=== PATIENT | male | born 1975 | race Caucasian/White ===

== ENCOUNTER 2018-12-25 18:26 | Emergency (ER) | payer OTHER, BC ==
[2018-12-25 18:50] VITALS: BP 151/107
--- NOTE | 2018-12-25 18:51 | ED Physician Documentation ---
History of Present Illness - Stated complaint Stated Complaint: MALE - Chief complaint Chief Complaint: General - Additonal information Additional information: Patient is a 43-year-old male presenting with less than 1 day of anal discomfo rt. Patient denies any known incident or trauma to the area. Patient did have fall from 10 feet several weeks ago while at work, which has been evaluated and addressed otherwise. Patient does not have complaints related to this issue. Patient is unsure if he has hemorrhoids or not. Patient reports pain with defecation and with wiping, although no blood present. Patient denies constipation and describes more loose stools. Patient denies fever, abdominal pain, nausea, vomiting, urinary changes, testicular or penile complaints. No particular improving or worsening factors to the symptoms noted. Review of Systems Constitutional: denies: Fever GI: reports: Diarrhea. denies: Abdominal Pain PD PAST MEDICAL HISTORY - Past Medical History Past Medical History: No - Past Surgical History Past Surgical History: No - Present Medications Home Medications: Ambulatory Orders Medication Instructions Recorded Confirmed Hydrocortisone/Pramoxine [Analpram 59 ml TP QID #1 lotion 12/25/18 Hc 2.5%-1% Lotion] - Allergies Allergies/Adverse Reactions: Allergies Allergy/AdvReac Type Severity Reaction Status Date / Time No Known Drug Allergies Allergy Verified 12/25/18 18:43 PD ED PE NORMAL - General General: Alert and oriented X 3, No acute distress, Well developed/nourished - HEENT HEENT: Atraumatic - Cardiac Cardiac: RRR, No murmur - Respiratory Respiratory: No respiratory distress, Clear bilaterally - Abdomen Abdomen: Normal bowel sounds, Soft, Non tender, Non distended - Male Male : [employer]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 Approximately dime sized slightly erythematous hemorrhoid with no evidence of clot present. No evidence of anal tears, fissures, or fistulas. No other signs of abscess present. No concerns for Jhon's.) - Derm Derm: Normal color, Warm and dry, No rash - Extremities Extremities: No deformity, No tenderness to palpate - Neuro Neuro: Alert and oriented X 3, No motor deficit, No sensory deficit - Psych Psych: Normal mood, Normal affect Results - Vitals Vitals: Vital Signs - 24 hr 12/25/18 18:43 Temperature 36.8 C Heart Rate 101 H Respiratory 16 Rate Blood Pressure 151/107 H O2 Saturation 97 Oxygen O2 Source Room air PD MEDICAL DECISION MAKING - ED course Complexity details: considered differential, d/w patient ED course: Most concerning for hemorrhoids given patient's description and physical exam findings. Do not find evidence of anal fissure, anal tear, fistula. Do not have concerns for rectal abscess or other intra-abdominal complications. Patient also denies symptoms or concerns that would raise suspicion for inguinal hernias, testicular or penile pathology. Discussed supportive cares, return precautions, appropriate follow-up. Patient voiced understanding and is comfortable with discharge plan. Departure - Departure Disposition: 01 Home, Self Care Clinical Impression: Acute hemorrhoid Condition: Good Instructions: ED Hemorrhoids Follow-Up: your,doctor [Other] - Within 3 Days Prescriptions: Hydrocortisone/Pramoxine [Analpram Hc 2.5%-1% Lotion] 59 ml TP QID #1 lotion Comments: Recommend finding pillows or a doughnut to help relieve pressure while sitting. Also recommend oatmeal or sits baths to help reduce inflammation. May use ibuprofen/Tylenol for pain and inflammation relief as well. Please use Analpram as prescribed for topical relief. May also try ajam-[id number]-[id number] hemorrhoid creams if needed. Follow-up with primary care physician in next 2-3 days and return to ED sooner if experience worsening symptoms or other concerns.
== END 2018-12-25 19:13 | disposition home or self-care (01) ==
LOC: ED 18:26
DX: K64.4 Residual hemorrhoidal skin tags (principal)
CPT/HCPCS: 99283

== ENCOUNTER 2019-03-07 08:00 | Outpatient (CLI) | payer BC, OTHER ==
[2019-03-07 14:38] LABS: BASOPHILS % (AUTO) 0.5 %; EOSINOPHILS # (AUTO) 0.2 10^3/uL (0.0-0.7); EOSINOPHILS % (AUTO) 4.1 %; HGB - HEMOGLOBIN 15.2 g/dL (14.0-18.0); LYMPHOCYTES # (AUTO) 1.8 10^3/uL (1.5-3.5); MEAN CORPUSCULAR HEMOGLOBIN 29.7 pg (27.0-31.0); MEAN CORPUSCULAR HGB CONC 33.5 g/dL (32.0-36.0); MEAN CORPUSCULAR VOLUME 88.6 fL (80.0-94.0); MEAN PLATELET VOLUME 9.9 fL (7.4-11.4); MONOCYTES # (AUTO) 0.6 10^3/uL (0.0-1.0); MONOCYTES % (AUTO) 12.1 %; NEUTROPHILS # (AUTO) 2.5 10^3/uL (1.5-6.6); NEUTROPHILS % (AUTO) 48.3 %; PLT - PLATELET COUNT 203 10^3/uL (130-450); RED BLOOD COUNT 5.12 10^6/uL (4.70-6.10); RED CELL DISTRIBUTION WIDTH 13.3 % (12.0-15.0); WHITE BLOOD COUNT 5.2 x10^3/uL (4.8-10.8)
[2019-03-07 15:13] LABS: ALBUMIN 4.5 g/dL (3.2-5.5); ALBUMIN/GLOBULIN RATIO 1.6 (1.0-2.2); ALKALINE PHOSPHATASE 49 IU/L (42-121); ALT ALANINE AMINOTRANSFERASE 33 IU/L (10-60); AST ASPARTATE AMINOTRANSFERASE 23 IU/L (10-42); BILIRUBIN,TOTAL 0.8 mg/dL (0.2-1.0); BUN - BLOOD UREA NITROGEN 15 mg/dL (6-20); CALCIUM 9.4 mg/dL (8.5-10.3); CARBON DIOXIDE - CO2 25 mmol/L (21-32); CHLORIDE 104 mmol/L (101-111); CHOLESTEROL 216 mg/dL; CREATININE 1.1 mg/dL (0.6-1.2); GFR - MDRD 72 (>89); GLUCOSE 95 mg/dL (70-100); HDL CHOLESTEROL 54 mg/dL; LDL CHOLESTEROL,CALCULATED 134 mg/dL; LDL/HDL RATIO 2.5 (<3.6); SODIUM 140 mmol/L (135-145); TOTAL PROTEIN 7.3 g/dL (6.7-8.2); VLDL CHOLESTEROL 28 mg/dL
== END 2019-03-07 08:01 | disposition home or self-care (01) ==
LOC: LAB.WCP 08:00
PROVIDERS: ATTEND Family Medicine
DX: Z00.00 Encounter for general adult medical examination without abnormal findings (principal); E78.01 Familial hypercholesterolemia
CPT/HCPCS: 36415; 80053; 80061; 83721; 84443; 85025

== ENCOUNTER 2019-04-07 08:00 | Outpatient (CLI) | payer OTHER ==
[2019-04-07 18:46] LABS: BASOPHILS % (AUTO) 0.5 %; EOSINOPHILS # (AUTO) 0.2 10^3/uL (0.0-0.7); EOSINOPHILS % (AUTO) 4.1 %; HGB - HEMOGLOBIN 14.5 g/dL (14.0-18.0); LYMPHOCYTES # (AUTO) 1.7 10^3/uL (1.5-3.5); LYMPHOCYTES % (AUTO) 31.3 %; MEAN CORPUSCULAR HEMOGLOBIN 28.9 pg (27.0-31.0); MEAN CORPUSCULAR HGB CONC 31.2 g/dL (32.0-36.0); MEAN CORPUSCULAR VOLUME 92.6 fL (80.0-94.0); MEAN PLATELET VOLUME 11.9 fL (7.4-11.4); MONOCYTES # (AUTO) 0.6 10^3/uL (0.0-1.0); MONOCYTES % (AUTO) 11.2 %; NEUTROPHILS # (AUTO) 2.9 10^3/uL (1.5-6.6); NEUTROPHILS % (AUTO) 52.5 %; PLT - PLATELET COUNT 200 10^3/uL (130-450); RED BLOOD COUNT 5.02 10^6/uL (4.70-6.10); RED CELL DISTRIBUTION WIDTH 12.7 % (12.0-15.0); WHITE BLOOD COUNT 5.6 x10^3/uL (4.8-10.8)
[2019-04-07 19:06] LABS: CALCIUM 9.3 mg/dL (8.5-10.3)
== END 2019-04-07 23:59 | disposition home or self-care (01) ==
LOC: LAB.WCP 08:00
PROVIDERS: ATTEND Orthopaedic Surgery Orthopaedic Surgery of the Spine
DX: Z01.818 Encounter for other preprocedural examination (principal)
CPT/HCPCS: 36415; 80048; 85025

== ENCOUNTER 2019-05-03 14:40 | Outpatient (CLI) | payer OTHER ==
--- NOTE | 2019-05-04 13:54 | XRAY Report ---
Reason: LT KNEE PX Procedure Date: 05/03/2019 Accession Number: [id number] / [id number] Procedure: XR - Knee 2 View LT CPT Code: FULL RESULT: EXAM: LEFT KNEE RADIOGRAPHY EXAM DATE: 05/03/2019 04:10 PM. CLINICAL HISTORY: Left knee pain post ground level fall 2 months ago COMPARISON: None. TECHNIQUE: 2 Views. FINDINGS: Bones: No fractures or bone lesions. Joints: No significant degenerative process. No effusion. No subluxations. Soft Tissues: No soft tissue calcification or soft tissue swelling. IMPRESSION: Negative left knee radiography. [facility]
== END 2019-05-03 14:41 | disposition home or self-care (01) ==
LOC: DI 14:40
PROVIDERS: ATTEND Family Medicine
DX: M25.562 Pain in left knee (principal)

== ENCOUNTER 2020-01-11 18:02 | Emergency (ER) | payer OTHER ==
[2020-01-11] MEDS ORDERED: KETOROLAC 60 MG/2 ML VIAL IM STA (18:21)
--- NOTE | 2020-01-11 18:24 | ED Physician Documentation ---
History of Present Illness - Stated complaint Stated Complaint: LT KNEE PX - Chief complaint Chief Complaint: Ext Problem - History obtained from History obtained from: Patient - History of Present Illness Timing: How many days ago (several days) Pain level max: 8 Pain level now: 7 - Additonal information Additional information: 44-year-old male presents to the emergency department left knee pain for the past several days. He states that this is a chronic recurrent injury. He had a fall last November and has had intermittent pain to the knee since that time. He had a meniscus surgery on the medial aspect of the left knee in 1998. Has not seen an orthopedist recently. He states that the knee has locked up on him several times over the past year. Worse with walking and better with rest. No new injury. normal xray in April, 4 months after his last fall. Review of Systems Constitutional: denies: Fever, Chills GI: denies: Vomiting, Diarrhea Skin: denies: Rash Musculoskeletal: denies: Neck pain, Back pain Neurologic: denies: Headache PD PAST MEDICAL HISTORY - Past Medical History Past Medical History: No - Past Surgical History Past Surgical History: Yes Ortho: Arthroscopic surgery (L knee meniscus) - Present Medications Home Medications: Ambulatory Orders Medication Instructions Recorded Confirmed Hydrocortisone/Pramoxine [Analpram 59 ml TP QID #1 lotion 12/25/18 Hc 2.5%-1% Lotion] Meloxicam [Mobic] 15 mg PO DAILY PRN #20 tablet 01/11/20 Oxycodone HCl 5 - 10 mg PO Q6H PRN #14 tablet 01/11/20 - Allergies Allergies/Adverse Reactions: Allergies Allergy/AdvReac Type Severity Reaction Status Date / Time No Known Drug Allergies Allergy Verified 01/11/20 18:06 - Social History Does the pt smoke?: No Smoking Status: Never smoker Does the pt drink ETOH?: No Does the pt have substance abuse?: No - Immunizations Immunizations are current?: Yes PD ED PE NORMAL - Vitals Vital signs reviewed: Yes - General General: Alert and oriented X 3, No acute distress - HEENT HEENT: Moist mucous membranes - Neck Neck: Supple, no meningeal sign - Cardiac Cardiac: RRR - Respiratory Respiratory: No respiratory distress, Clear bilaterally - Derm Derm: Warm and dry - Extremities Extremities: Other (Left knee tenderness to palpation along the medial aspect of the joint line. Mild effusion. Neurovascular intact. ACL, MCL, PCL, LCL are intact. Unable to tolerate meniscus testing well. Limited range of motion secondary to pain.) - Neuro Neuro: Alert and oriented X 3 Results - Vitals Vitals: Vital Signs - 24 hr 01/11/20 18:06 Temperature 36.8 C Heart Rate 90 Respiratory 16 Rate Blood Pressure 125/85 H O2 Saturation 96 Oxygen O2 Source Room air PD MEDICAL DECISION MAKING - ED course Complexity details: reviewed old records, considered differential, d/w patient ED course: 44-year-old male with what appears to be a chronic meniscus injury. Will place on pain medications and anti-inflammatories. Given a shot of Toradol here. Negative x-rays in April. He needs an MRI, will refer him to orthopedics for further evaluation and care. No indication for repeat x-rays today. Patient counseled regarding signs and symptoms for which I believe and urgent re- evaluation would be necessary. Patient with good understanding of and agreement to plan and is comfortable going home at this time This document was made in part using voice recognition software. While efforts are made to proofread this document, sound alike and grammatical errors may occur. Departure - Departure Disposition: Home, Self Care Clinical Impression: Meniscal injury Qualifiers: Encounter type: initial encounter Laterality: right Qualified Code(s): S83.8X1A - Sprain of other specified parts of right knee, initial encounter Condition: Good Instructions: ED Meniscal Injury Knee Poss Follow-Up: TA CRAFT MD [Primary Care Provider] - [facility] [Provider Group] - Within 1 week Prescriptions: Meloxicam [Mobic] 15 mg PO DAILY PRN #20 tablet PRN Reason: pain Oxycodone HCl 5 - 10 mg PO Q6H PRN #14 tablet PRN Reason: pain Comments: You appear to have had a meniscus injury to your knee. Use the medication as needed for pain. You can use a cane to help you ambulate as well. You need to follow-up with orthopedics for further care. Do not drink alcohol or drive while on narcotic pain medicine. Note that many narcotic pain relievers also contain tylenol/acetaminophen. Please ensure that your total dose of acetaminophen from all sources does not exceed 3 grams (3000mg) per day. You may constipated on this medication, take a stool softener such as "Colace" twice a day while you are on it. Also recommend a ridg-rar-jmepntx laxative such as senna or MiraLAX any day that you do not have a bowel movement. If you received narcotic pain medication in the emergency department, do not drive or operate machinery for the next 24 hours.
[2020-01-11 18:58] VITALS: BP 136/94
== END 2020-01-11 18:58 | disposition home or self-care (01) ==
LOC: ED 18:02
DX: S83.8X1A Sprain of other specified parts of right knee, initial encounter (principal); W19.XXXA Unspecified fall, initial encounter
CPT/HCPCS: 99283; 99284

== ENCOUNTER 2022-07-27 10:47 | Emergency (ER) | payer OTHER ==
[2022-07-27 10:53] VITALS: BP 128/84
[2022-07-27] MEDS ORDERED: ALBUTEROL 1 PUFF INH STA (11:31)
--- NOTE | 2022-07-27 11:33 | ED Physician Documentation ---
History of Present Illness - Stated complaint Stated Complaint: SOA/COUGH - Chief complaint Chief Complaint: Resp - Additonal information Additional information: 46-year-old male presents emergency department for evaluation of cough and conge stion. Symptoms began about 1 week ago. He reports that he is sometimes struggling to breathe after his coughing episodes. Cough is occasionally productive. No fevers until last night. He felt very warm and began to sweat. No vomiting or diarrhea. Non-smoker. He is vaccinated though not boosted for COVID and over the last week has not done any COVID screening. Denies sick contacts or recent travel. Review of Systems Constitutional: denies: Fever, Chills Nose: reports: Congestion Throat: reports: Reviewed and negative Cardiac: denies: Chest pain / pressure, Palpitations Respiratory: reports: Dyspnea, Cough, Wheezing. denies: Hemoptysis GI: reports: Reviewed and negative : reports: Reviewed and negative Skin: reports: Reviewed and negative PD PAST MEDICAL HISTORY - Past Medical History Past Medical History: Yes - Past Surgical History Past Surgical History: Yes Ortho: Arthroscopic surgery - Present Medications Home Medications: Ambulatory Orders Medication Instructions Recorded Confirmed Albuterol Sulf [Ventolin Hfa 1 - 2 puffs INH Q4HR PRN #1 each 07/27/22 Inhaler] Atorvastatin Calcium 40 mg PO DAILY 07/27/22 07/27/22 Benzonatate [Tessalon] 200 mg PO TID PRN #20 cap 07/27/22 Gabapentin [Neurontin] 800 mg PO TID 07/27/22 07/27/22 Sertraline [Zoloft] 100 mg PO DAILY 07/27/22 07/27/22 - Allergies Allergies/Adverse Reactions: Allergies Allergy/AdvReac Type Severity Reaction Status Date / Time No Known Drug Allergies Allergy Verified 07/27/22 10:55 - Social History Does the pt smoke?: No Smoking Status: Never smoker Does the pt drink ETOH?: No Does the pt have substance abuse?: No - Immunizations Immunizations are current?: Yes - POLST Patient has POLST: No PD ED PE NORMAL - General General: Alert and oriented X 3, No acute distress - HEENT HEENT: Atraumatic, Ears normal, Moist mucous membranes, Pharynx benign - Neck Neck: Supple, no meningeal sign, No adenopathy - Cardiac Cardiac: RRR, No murmur - Respiratory Respiratory: No respiratory distress. No: Clear bilaterally (Able to take full deep breaths though there is faint scattered end expiratory wheeze.) - Abdomen Abdomen: Normal bowel sounds, Soft - Derm Derm: Normal color, Warm and dry, No rash - Extremities Extremities: No deformity, No tenderness to palpate, Normal ROM s pain - Neuro Neuro: Alert and oriented X 3, spouter 2-12 intact Eye Opening: Spontaneous Motor: Obeys Commands Verbal: Oriented GCS Score: 15 Results - Vitals Vitals: Vital Signs - 24 hr 07/27/22 07/27/22 07/27/22 10:51 11:25 11:54 Temperature 36.8 C Heart Rate 88 79 78 Respiratory 16 20 18 Rate Blood Pressure 128/84 H O2 Saturation 98 98 Oxygen O2 Source Room air - Rads (name of study) cxr Radiology: Final report received (No acute cardiopulmonary process) PD MEDICAL DECISION MAKING - ED course Complexity details: reviewed results, re-evaluated patient, considered differential, d/w patient ED course: This is well-appearing 46-year-old male the presents emergency department for evaluation of a cough that began 1 week ago. He states that he has coughing spasms that often take his breath away. Non-smoker and no history of pulmonary disease. He reports a fever last night. On exam he had some mild diffuse expiratory wheeze. His ENT exam was unremarkable. Room air saturations were unremarkable and normal. Chest x-ray was negative for acute focal opacities or findings of pneumonia. In the emergency department he was administered albuterol with a spacer and on reevaluation the wheezes completely abated. He reports that he feels much better and thinks that he can take full deep breaths now without issue. Given the lack of opacity on x-ray I doubt pneumonia. He most likely has a viral upper respiratory infection with some associated bronchospasm. Patient will be discharged with a prescription for some albuterol to be used at home as well as some Tessalon Perles. Will defer antibiotics as he is otherwise well- appearing without worrisome symptoms. Emergent return precautions were discussed for failure symptoms to resolve. Departure - Departure Disposition: 01 Home, Self Care Clinical Impression: URI with cough and congestion Condition: Stable Record reviewed to determine appropriate education?: Yes Instructions: ED Bronchitis Asthmatic Prescriptions: Albuterol Sulf [Ventolin Hfa Inhaler] 1 - 2 puffs INH Q4HR PRN #1 each PRN Reason: Shortness Of Air/Wheezing Benzonatate [Tessalon] 200 mg PO TID PRN #20 cap PRN Reason: Cough Comments: Shaun you came to the emergency department because you have had cough and congestion for about 1 week. You have had coughing fits that take your breath away and you feel tightness in your chest. Your chest x-ray today was negative for findings to suggest pneumonia. As we discussed at the bedside I suspect that you have a viral upper respiratory infection that is causing some mild bronchospasm. I have given you some albuterol here in the emergency department which seems to have improved your symptoms. Therefore I am sending a prescription for albuterol to the [facility] in [place]. Please use this 4-6 times a day to help with cough. In general most upper respiratory infections will begin to get better between 7 and 10 days. If you find that despite using the Tessalon Perles for cough and the albuterol 4-6 times a day your symptoms are not improving then I would like you to return immediately to the ER or return sooner for severe shortness of air chest pain fainting or other emergent conditions
--- NOTE | 2022-07-27 11:46 | XRAY Report ---
PROCEDURE: Chest 1 View X-Ray INDICATIONS: cough X 1 week TECHNIQUE: One view of the chest was acquired. COMPARISON: None FINDINGS: Surgical changes and devices: None. Lungs and pleura: No pleural effusions or pneumothorax. Lungs are clear. Mediastinum: Mediastinal contours appear normal. Heart size is normal. Bones and chest wall: No suspicious bony lesions. Overlying soft tissues appear unremarkable. IMPRESSION: No acute pulmonary process. Reviewed by: Marlys Carter MD on 07/27/2022 11:45 AM PDT Approved by: Marlys Carter MD on 07/27/2022 11:45 AM PDT Station ID: [id number]
== END 2022-07-27 12:13 | disposition home or self-care (01) ==
LOC: ED 10:47
DX: J06.9 Acute upper respiratory infection, unspecified (principal)
CPT/HCPCS: 94640; 99283